=== PATIENT | female | born 1930 | race Caucasian/White ===

== ENCOUNTER 2016-11-02 07:56 | Day surgery (SDC) | payer OTHER, MEDICAID ==
[2016-11-02] MEDS ORDERED: PROPOFOL 200 MG/20 ML VIAL ONE ×2 (08:59)
[2016-11-02] MEDS ORDERED: LIDOCAINE 2% 100 MG/5 ML SYR IVP ONE (09:29)
--- NOTE | 2016-11-02 10:11 | GPN ---
[f rep st] PROCEDURE NOTE PREPROCEDURE DIAGNOSIS: Epigastric abdominal pain and abnormal CT scan of the gastrointestinal tract . POSTPROCEDURE DIAGNOSIS: Gastritis. PROCEDURE: EGD with biopsy. MEDICATIONS: Monitored anesthesia care. INDICATIONS: The patient is an 86-year-old female with a history of abdominal pain and abnormal CT s can showing gastric wall thickening. She is here today for upper endoscopy for further evaluation. The risks and benefits of the procedure were discussed with the patient and consent obtained. Risks include, but not limited to, bleeding, perforation, risks associated with sedation. The patient is A SA class 3. DESCRIPTION OF PROCEDURE: The end-viewing endoscope inserted into esophagus, into the stomach and 2n d portion the duodenum. The esophagus was normal. The GE junction was located at 40 cm from the inc isors. There was no evidence of varices, Burrell's or esophagitis. The stomach shows two 5 mm polyp s which are likely fundic gland polyps and benign. There is erythema and small erosions in the gastr ic antrum consistent with mild gastritis. The duodenal 2nd portion was normal. There were no additi onal abnormal findings in the stomach to correspond with the CT scan results. Biopsies were taken of the gastritis in the gastric antrum using cold biopsy forceps and sent off to pathology. IMPRESSION: 1. 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 2. Mild gastritis in the gastric antrum, status post biopsies for Helicobacter pylori. RECOMMENDATIONS: 1. Discharge home with escort. 2. Advance diet as tolerated. 3. Continue acid suppression medication. 4. Avoid nonsteroidal anti-inflammatory medications. 5. Follow up in our GI clinic as previously scheduled. Thank you for allowing me to participate in the care of the patient. Please do not hesitate to call with questions. /[id number]/[id number]
== END 2016-11-02 11:10 | disposition home or self-care (01) ==
LOC: FSGY 07:56
PROVIDERS: ATTEND Internal Medicine Gastroenterology
PROC: 0DB68ZX Excision of Stomach, Via Natural or Artificial Opening Endoscopic, Diagnostic (ICD-10-PCS; principal; 2016-11-02 08:45)
DX: K29.70 Gastritis, unspecified, without bleeding (principal); K21.9 Gastro-esophageal reflux disease without esophagitis; E11.9 Type 2 diabetes mellitus without complications; G89.4 Chronic pain syndrome; E03.9 Hypothyroidism, unspecified
CPT/HCPCS: J2001; J2704